=== PATIENT | female | born 1945 | race Caucasian/White ===

== ENCOUNTER 2019-08-28 13:23 | Emergency (ER) | payer MEDICARE, SELFPAY ==
[2019-08-28 13:31] VITALS: BP 117/61; PULSE 61; RESP 18; TEMP 36.4; O2SAT 97; BMI 27.4
--- NOTE | 2019-08-28 13:35 | ED_ITS ---
Entered by Loli Rosas, acting as scribe for Shorty Harris MD HPI - Chest Pain General: Chief Complaint: Syncope Stated Complaint: Bradycardia Time Seen by Provider: 08/28/19 13:32 Source: patient and EMS Mode of arrival: EMS Limitations: no limitations History of Present Illness: HPI narrative: 74 yo Female presents to ED with complaint of symptomatic bradycardia. Pt was at a restaurant when she had a syncopal episode. Pt states that she does not have any chest pains at this time. Pt states that she has a headache. complaint: other (bradycardia) Associated symptoms: Deny abdominal pain, dyspnea, fever(s), nausea or vomiting Review of Systems Const: Denies: fever, chills, body aches or change in appetite Eyes: Denies: blurry vision or eye discomfort ENMT: Denies: throat pain or dental pain Card: Reports: other (bradycardia); Denies: chest pain Resp: Denies: shortness of breath GI: Denies: abdominal pain, nausea, vomiting or diarrhea : Denies: painful urination Musc: Denies: neck pain or back pain Skin/Breast: Denies: rash Neuro: Reports: headache Psych: Denies: depression Krzysztof/Lymph: Denies: easy bruising All/Imm: Denies: hives PFSH ED PFSH: Statuses (acute, chronic, etc) shown below reflect problem list status as previously entered and may not be historically accurate Medical History (Updated 08/28/19 @ 16:28 by Shorty Harris MD) Appendicitis (Acute) Gallstones (Acute) Hepatitis (Acute) HTN (hypertension) (Acute) Syncope (Acute) Surgical History (Updated 08/28/19 @ 14:28 by Loli Rosas) History of appendectomy (Acute) History of cholecystectomy (Acute) History of tonsillectomy (Acute) Social History Smoking and tobacco status: never smoked Physical Exam Const: COMMON NORMALS: no apparent distress, oriented x3 and healthy appearing HENMT: COMMON NORMALS: normocephalic and head/scalp atraumatic HEAD & SCALP: normocephalic and atraumatic Eye: COMMON NORMALS: PERRL and EOMs intact bilaterally PUPIL: Yes PERRL Neck/C-Spine: COMMON NORMALS: full ROM and supple Chest: COMMONS NORMALS: inspection of chest normal and palpation of chest normal Resp: COMMON NORMALS: normal respiratory effort, no retractions, no use of accessory muscles and clear to auscultation bilaterally AUSCULTATION: clear to auscultation bilaterally Cardio: COMMON NORMALS: regular rate, regular rhythm and no murmurs RATE: regular rate RHYTHM: regular rhythm GI: COMMON NORMALS: normal to inspection, nondistended, normoactive bowel sounds, soft to palpation, non-tender and no masses PALPATION: Yes soft Extremity: COMMON NORMALS: normal to inspection and full ROM Neuro: COMMON NORMALS: oriented x3, moves all extremities and no focal motor deficits Psych: COMMON NORMALS: mental status grossly normal, thought process normal a nd cooperative THOUGHT PROCESS: normal thought process Skin: COMMON NORMALS: no rashes or lesions noted and no wounds GENERAL SKIN EXAM: no rashes or lesions noted Course Vital Signs: Vital signs: Vital Signs Temperature 97.5 F L 08/28/19 13:31 Pulse Rate 60 08/28/19 14:41 Respiratory Rate 16 08/28/19 14:13 Blood Pressure 118/66 08/28/19 14:41 Pulse Oximetry 98 08/28/19 14:13 MDM - Chest Pain MDM Narrative: Medical decision making narrative: Patient presents here with syncope most likely vasovagal. Patient had stood up started feeling nauseous and lightheaded and passed out. Unsure why patient received atropine as her bradycardia was likely from her vagal response. Patient has been observed here and her heart rate and blood pressure been normal. Orthostatics were normal she feels much improved and is requesting to be discharged. Patient's EKG is normal and she is stable for discharge. She is to follow-up with primary care doctor in 3 to 5 days and return if worsening. Lab Data: Labs: Lab Results 08/28/19 08/28/19 08/28/19 Range/Units 13:50 13:50 13:50 WBC 5.9 (4.0-10.0) 10^3/ uL RBC 4.59 (4.1-5.3) 10^6/u L Hgb 13.2 (11.5-15.3) g/dL Hct 41.8 (37.0-47.0) % MCV 91.1 (81-99) fL MCH 28.8 (28.0-34.0) pg MCHC 31.6 (30.0-36.0) g/dL RDW 12.5 (12.1-15.1) % Plt Count 216 (130-400) 10^3/c mm MPV 9.6 (7.4-10.4) fL Neut % (Auto) 64.3 % Lymph % (Auto) 27.0 % [place] % (Auto) 4.9 % Eos % (Auto) 3.2 % Baso % (Auto) 0.3 % Neut # (Auto) 3.8 (1.8-7.7) 10^3/u L Lymph # (Auto) 1.6 (0.8-4.8) 10^3/u L [place] # (Auto) 0.3 (0.2-0.9) 10^3/u L Eos # (Auto) 0.2 (0.0-0.8) 10^3/u L Baso # (Auto) 0.0 (0.0-0.1) 10^3/u L Nucleated RBC % (a uto) 0 % Nucleated RBCs # 0.0 /100WBC Sodium 139 (136-145) mmol/L Potassium 4.2 (3.5-5.1) mmol/L Chloride 106 (98-107) mmol/L Carbon Dioxide 22 (22-29) mmol/L Anion Gap 15.2 (5-19) BUN 11 (8-23) mg/dL Creatinine 0.9 (0.5-0.9) mg/dL Glucose 101 (74-106) mg/dL Calcium 9.1 (8.5-10.5) mg/dL Total Bilirubin 0.3 (0.15-1.2) mg/dL AST 20 (0-32) U/L ALT 13 (0-33) U/L Alkaline Phosphata se 75 (35-105) IU/L Troponin T Baselin e 8 (0-10) ng/mL Troponin T 120 Min [place] (0-10) ng/mL Delta Troponin T (0-10) ABS# Total Protein 7.0 (6.6-8.7) g/dL Albumin 4.0 (3.5-5.2) g/dL Globulin 3.0 (1.3-4.6) g/dL 08/28/19 Range/Units 15:46 WBC (4.0-10.0) 10^3/ uL RBC (4.1-5.3) 10^6/u L Hgb (11.5-15.3) g/dL Hct (37.0-47.0) % MCV (81-99) fL MCH (28.0-34.0) pg MCHC (30.0-36.0) g/dL RDW (12.1-15.1) % Plt Count (130-400) 10^3/c mm MPV (7.4-10.4) fL Neut % (Auto) % Lymph % (Auto) % [place] % (Auto) % Eos % (Auto) % Baso % (Auto) % Neut # (Auto) (1.8-7.7) 10^3/u L Lymph # (Auto) (0.8-4.8) 10^3/u L [place] # (Auto) (0.2-0.9) 10^3/u L Eos # (Auto) (0.0-0.8) 10^3/u L Baso # (Auto) (0.0-0.1) 10^3/u L Nucleated RBC % (a uto) % Nucleated RBCs # /100WBC Sodium (136-145) mmol/L Potassium (3.5-5.1) mmol/L Chloride (98-107) mmol/L Carbon Dioxide (22-29) mmol/L Anion Gap (5-19) BUN (8-23) mg/dL Creatinine (0.5-0.9) mg/dL Glucose (74-106) mg/dL Calcium (8.5-10.5) mg/dL Total Bilirubin (0.15-1.2) mg/dL AST (0-32) U/L ALT (0-33) U/L Alkaline Phosphata se (35-105) IU/L Troponin T Baselin e (0-10) ng/mL Troponin T 120 Min [place] 8.02 (0-10) ng/mL Delta Troponin T 0.02 (0-10) ABS# Total Protein (6.6-8.7) g/dL Albumin (3.5-5.2) g/dL Globulin (1.3-4.6) g/dL Imaging Data^: CXR: Radiologist's impression: [address] [address] XRay Report Signed Patient: Babita Barrientos #: [id number] : 7Acct#:[id number] Age/Sex: 74 / FADM Date: 08/28/19 Loc: ERRoom/Bed: Attending Dr: Ordering Provider/Ordering MD: Shorty Harris MD Date of Service: 08/28/19 Procedure(s): XR chest 1V portable [id number] Accession Number(s): [id number] Report Number: [id number] WS: [id number] PORTABLE CHEST HISTORY: Chest pain and syncope. COMPARISON: 11/13/2018 Mild elevation of the RIGHT hemidiaphragm. Lungs are clear. No pneumonia. No pneumothorax. No pleural effusion or pneumothorax. Cardiac size: Normal. Mediastinum/Aorta: Mild atherosclerosis aorta. No osseous abnormality seen. XR/XR chest 1V portable [id number] IMPRESSION: Stable chest with no acute cardiopulmonary disease. Dictated By:Annita Meehan DO Signed By:Annita Meehan DOSigned Date/Time:08/28/191403 DD/ 1404 EKG Data^: EKG 1: Attestation: I personally reviewed and interpreted this EKG as follows: EKG interpretation date: 08/28/19 EKG interpretation time: 13:45 Interpretation: sinus jean marie hr [address] or t wave abnormalities qrs 89 qtc 433 Discharge Plan Discharge Patient Disposition: Home, Self-Care Clinical Impression: Vasovagal syncope Condition: Stable Prescriptions: No Action multivitamin Tablet 1 tab PO DAILY RF: 0 lamotrigine 150 mg tablet 150 mg PO DAILY RF: 0 metoprolol succinate 100 mg tablet extended release 24 hr 100 mg PO DAILY RF: 0 amlodipine 5 mg tablet 5 mg PO DAILY RF: 0 pantoprazole 40 mg tablet,delayed release (DR/EC) 40 mg PO DAILY RF: 0 aspirin 81 mg Tablet,Chewable 81 mg PO DAILY RF: 0 rosuvastatin 10 mg tablet 10 mg PO DAILY RF: 0 Discharge Orders: Discharge Order (Routine); Ordered 08/28/19 Ordered By: Shorty Harris Referrals: [facility] [Other] Discharge Diet: Advance as tolerated Discharge Activity: Resume usual activity Patient Instructions: Syncope (ED) Discharge Date/Time: 08/28/19 16:50 Coding Level of Care Code ED Style Advisor for Chg Fwd Exam Problem Focused The documentation recorded by the Alison singh Carmen, accurately reflects the service I personally performed and the decisions made by , Shorty Harris MD Aug 28, 2019 13:23
--- NOTE | 2019-08-28 13:37 | XR_ITS ---
WS: [id number] PORTABLE CHEST HISTORY: Chest pain and syncope. COMPARISON: 11/13/2018 Mild elevation of the RIGHT hemidiaphragm. Lungs are clear. No pneumonia. No pneumothorax. No pleural effusion or pneumothorax. Cardiac size: Normal. Mediastinum/Aorta: Mild atherosclerosis aorta. No osseous abnormality seen. XR/XR chest 1V portable [id number] IMPRESSION: Stable chest with no acute cardiopulmonary disease.
--- NOTE | 2019-08-28 13:37 | ECG_ITS ---
Measurements Intervals [place] Rate: 57 P: 6 CT: 100 QRS: -22 QRSD: 89 T: 9 QT: 438 QTc: 429 SINUS BRADYCARDIA WITH SHORT CT INTERVAL BORDERLINE LEFT AXIS DEVIATION [QRS AXIS < -20] LOW QRS VOLTAGE IN PRECORDIAL LEADS [QRS DEFLECTION < 1.0 mV IN CHEST LEADS] MODERATE VOLTAGE CRITERIA FOR LVH, CONSIDER NORMAL VARIANT [MEETS CRITERIA IN ONE OF: R(aVL), S(V1), R(V5), R(V5/V6)+S(V1)] MINIMAL ST DEPRESSION [0.025+ mV ST DEPRESSION] Compared to ECG 11/21/2017 01:35:[address] interval now present Low QRS voltage now present Sinus rhythm no longer present Myocardial infarct finding no longer present ST (T wave) deviation still present Electronically Signed On 08-28-2019 16:19:38 EXTRACT WRINGER by Brandon Alamo M.D. [email or web address]
[2019-08-28 14:09] LABS: Basophils % 0.3 %; Eosinophils # 0.2 10^3/uL (0.0-0.8); Eosinophils % 3.2 %; Hematocrit 41.8 % (37.0-47.0); Hemoglobin 13.2 g/dL (11.5-15.3); Lymphocytes # 1.6 10^3/uL (0.8-4.8); Mean Corpuscular HGB Conc 31.6 g/dL (30.0-36.0); Mean Corpuscular Hemoglobin 28.8 pg (28.0-34.0); Mean Corpuscular Volume 91.1 fL (81-99); Mean Platelet Volume 9.6 fL (7.4-10.4); Monocytes # 0.3 10^3/uL (0.2-0.9); Monocytes % 4.9 %; Neutrophils # 3.8 10^3/uL (1.8-7.7); Neutrophils % 64.3 %; Nucleated Red Blood Cells % 0 %; Platelet Count 216 10^3/cmm (130-400); Red Blood Count 4.59 10^6/uL (4.1-5.3); Red Cell Distribution Width 12.5 % (12.1-15.1); White Blood Count 5.9 10^3/uL (4.0-10.0)
[2019-08-28 14:13] VITALS: PULSE 59; RESP 16; O2SAT 98
[2019-08-28 14:19] LABS: Alanine Aminotransferase 13 U/L (0-33); Alkaline Phosphatase 75 IU/L (35-105); Anion Gap 15.2 (5-19); Aspartate Amino Transferase 20 U/L (0-32); Blood Urea Nitrogen 11 mg/dL (8-23); Calcium 9.1 mg/dL (8.5-10.5); Carbon Dioxide 22 mmol/L (22-29); Chloride 106 mmol/L (98-107); Creatinine Clr Calc Pharmacy 59.2489; Glucose 101 mg/dL (74-106); Potassium 4.2 mmol/L (3.5-5.1); Sodium 139 mmol/L (136-145); Total Bilirubin 0.3 mg/dL (0.15-1.2)
[2019-08-28 14:20] LABS: Troponin(5th) Baseline 8 ng/mL (0-10)
[2019-08-28 14:41] VITALS: BP 113/69; BP 118/66; BP 128/73; PULSE 60; PULSE 70; PULSE 73
[2019-08-28] MEDS: sodium chloride 0.9% 1,000 ML 999 ML IV (15:17)
[2019-08-28 16:15] LABS: Troponin 5 2HR 8.02 ng/mL (0-10); Troponin 5 2HR Delta 0.02 ABS# (0-10)
[2019-08-28 16:49] VITALS: BP 128/69; PULSE 64; RESP 16; O2SAT 97
--- NOTE | 2019-08-28 19:37 | ECG_ITS ---
Measurements Intervals [place] Rate: 60 P: 46 MA: 146 QRS: -18 QRSD: 106 T: 0 QT: 459 QTc: 459 SINUS RHYTHM LOW QRS VOLTAGE IN PRECORDIAL LEADS [QRS DEFLECTION < 1.0 mV IN CHEST LEADS] MODERATE VOLTAGE CRITERIA FOR LVH, CONSIDER NORMAL VARIANT [MEETS CRITERIA IN ONE OF: R(aVL), S(V1), R(V5), R(V5/V6)+S(V1)] POSSIBLE ANTERIOR MYOCARDIAL INFARCTION , PROBABLY OLD [30 ms Q WAVE IN V3/V4, OR R < 0.2 mV IN V4] Compared to ECG 11/21/2017 01:35:05 Low QRS voltage now present ST (T wave) deviation no longer present Myocardial infarct finding still present Electronically Signed On 08-28-2019 16:23:26 SLIDE FASTENERS INSPECTOR by Brandon Alamo M.D. [id number]
== END 2019-08-28 16:50 | disposition home or self-care (01) ==
PROVIDERS: Emergency Provider Emergency Medicine
DX: R55 Syncope and collapse (principal); Z79.82 Long term (current) use of aspirin; I10 Essential (primary) hypertension
CPT/HCPCS: 36415; 71045; 80053; 84484; 85025; 93005; 99283; 99284; J7030

== ENCOUNTER 2019-09-12 10:14 | Outpatient (CLI) | payer MEDICARE, SELFPAY ==
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
== END 2019-09-12 10:15 | disposition home or self-care (01) ==
LOC: RADWPI 10:18
PROVIDERS: PCP Nurse Practitioner Family; Visit Provider Nurse Practitioner Family
DX: Z78.0 Asymptomatic menopausal state (principal)
CPT/HCPCS: 77080

== ENCOUNTER 2019-10-11 08:16 | Outpatient (CLI) | payer MEDICARE, SELFPAY ==
--- NOTE | 2019-10-11 08:22 | MM_ITS ---
WS: [id number] BILATERAL SCREENING DIGITAL MAMMOGRAM WITH CAD HISTORY: SCREENING COMPARISON: 09/12/2018 at 07/14/2017 Bilateral CC and MLO views submitted. Computer aided detection analyzed. Breast composition: There are scattered areas of fibroglandular density. No suspicious masses, microc alcifications or architectural distortion. No change in the parenchymal pattern. MM/[place] [id number] IMPRESSION: BI-RADS: 2-Benign FOLLOW UP: 1 Year Follow-up
== END 2019-10-11 08:17 | disposition home or self-care (01) ==
LOC: RADSHAW 08:16
PROVIDERS: PCP Nurse Practitioner Family; Visit Provider Nurse Practitioner Family
DX: Z12.31 Encounter for screening mammogram for malignant neoplasm of breast (principal)
CPT/HCPCS: 77067

== ENCOUNTER 2020-12-25 11:53 | Outpatient (CLI) | payer MEDICARE, SELFPAY ==
--- NOTE | 2020-12-25 11:59 | MM_ITS ---
WS: [id number] BILATERAL SCREENING DIGITAL MAMMOGRAM WITH CAD HISTORY: SCREENING COMPARISON: 10/11/2019, 07/14/2017 Bilateral CC and MLO views submitted. Computer aided detection analyzed. Breast composition: There are scattered areas of fibroglandular density. No suspicious masses, microc alcifications or architectural distortion. Benign calcification LEFT breast. MM/[place] [id number] IMPRESSION: BI-RADS: 2-Benign FOLLOW UP: 1 Year Follow-up
== END 2020-12-25 11:54 | disposition home or self-care (01) ==
LOC: RADSHAW 11:58
PROVIDERS: PCP Nurse Practitioner Family; Visit Provider Nurse Practitioner Family
DX: Z12.31 Encounter for screening mammogram for malignant neoplasm of breast (principal)
CPT/HCPCS: 77067

== ENCOUNTER 2021-04-07 09:57 | Outpatient (CLI) | payer MEDICARE, SELFPAY ==
--- NOTE | 2021-04-07 | XR_ITS ---
WS: [id number] RIGHT RIBS, MULTIPLE VIEWS WITH PA CHEST HISTORY: RIB PAIN ON RIGHT SIDE COMPARISON: 08/28/2019 Lungs and mediastinum: Mild pulmonary hyperexpansion. Calcified RIGHT hilar lymph nodes. Slight eleva tion RIGHT hemidiaphragm is stable. Ribs: Nondisplaced anterolateral seventh rib fracture. Fourth, fifth and sixth ribs are also fracture d laterally. No underlying pneumothorax. XR/XR ribs RT mn 3V w CXR1V [id number] IMPRESSION: Nondisplaced RIGHT lateral fourth through seventh rib fractures.
--- NOTE | 2021-04-07 | XR_ITS ---
WS: [id number] RIGHT FOOT: 3 VIEW(S) TECHNIQUE: AP, oblique and lateral. HISTORY: FALL, RIGHT FOOT PAIN COMPARISON: None available. Transverse fracture at the base of the fifth metatarsal without displacement. Mild degenerative changes at the first metatarsophalangeal joint. Postoperative changes at the tibiotalar joint. XR/XR foot RT min 3V* [id number] IMPRESSION: Nondisplaced transverse fracture proximal fifth metatarsal.
== END 2021-04-07 09:58 | disposition home or self-care (01) ==
LOC: RADOUTREAD 04-08 10:04
PROVIDERS: PCP Nurse Practitioner Family; Visit Provider Nurse Practitioner Family
DX: S92.354A Nondisplaced fracture of fifth metatarsal bone, right foot, initial encounter for closed fracture (principal); S22.41XA Multiple fractures of ribs, right side, initial encounter for closed fracture; M79.671 Pain in right foot; X58.XXXA Exposure to other specified factors, initial encounter

== ENCOUNTER 2021-12-29 09:17 | Outpatient (CLI) | payer MEDICARE, SELFPAY ==
--- NOTE | 2021-12-29 09:25 | MM_ITS ---
WS: [id number] Bilateral screening 3D tomosynthesis digital mammogram, 12/29/2021 Clinical Data: SCREENING Comparison: 12/25/2020, 10/11/2019, 09/12/2018, 07/14/2017, 06/07/2016, 05/30/2015, 05/15/2014, 3, 01/28/2012, 01/26/2011, 01/15/2010, 01/09/2029, 01/02/2028, 12/13/2026. Findings: The breast parenchymal pattern shows fibroglandular tissue. No spiculated masses or clustered calcif ications are seen. There are no secondary signs of carcinoma. There is a mole marker on the left [address] MM/[place] [id number] Impression: 1. Negative bilateral mammogram unchanged. 2. Recommend annual screening mammograms. BIRADS: 1-Negative FOLLOW UP: 1 Year Follow-up The CAD checkering machine operator was used.
== END 2021-12-29 09:18 | disposition home or self-care (01) ==
LOC: RAD 09:19
PROVIDERS: PCP Nurse Practitioner Family; Visit Provider Nurse Practitioner Family
DX: Z12.31 Encounter for screening mammogram for malignant neoplasm of breast (principal)
CPT/HCPCS: 77063; 77067

== ENCOUNTER 2022-05-03 12:46 | Outpatient (CLI) | payer MEDICARE, SELFPAY ==
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
== END 2022-05-03 12:47 | disposition home or self-care (01) ==
LOC: RAD 12:47
PROVIDERS: PCP Nurse Practitioner Family; Visit Provider Nurse Practitioner Family
DX: Z78.0 Asymptomatic menopausal state (principal)
CPT/HCPCS: 77080

== ENCOUNTER 2022-07-02 15:34 | Emergency (ER) | payer OTHER, MEDICARE, SELFPAY ==
[2022-07-02 15:39] VITALS: BP 150/75; PULSE 68; RESP 14; TEMP 36.4; O2SAT 97; BMI 28.3
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
[2022-07-02 16:50] VITALS: BP 134/80; PULSE 56; RESP 16; O2SAT 95
== END 2022-07-02 16:51 | disposition home or self-care (01) ==
PROVIDERS: Emergency Provider Physician Assistant; PCP Nurse Practitioner Family
DX: Z04.1 Encounter for examination and observation following transport accident (principal); Z79.82 Long term (current) use of aspirin; I10 Essential (primary) hypertension; V89.2XXA Person injured in unspecified motor-vehicle accident, traffic, initial encounter
CPT/HCPCS: 71045; 99283

== ENCOUNTER 2023-01-06 08:10 | Outpatient (CLI) | payer MEDICARE, SELFPAY ==
--- NOTE | 2023-01-06 08:24 | MM_ITS ---
WS: [id number] BILATERAL SCREENING DIGITAL TOMOSYNTHESIS MAMMOGRAM WITH CAD HISTORY: SCREENING COMPARISON: 12/29/2021, 12/25/2020 and 06/07/2016 Bilateral CC and MLO views with tomosynthesis and synthetic mammography submitted. Computer aided det ection analyzed. Breast composition: There are scattered areas of fibroglandular density. No suspicious masses, microc alcifications or architectural distortion. Stable scattered asymmetries RIGHT breast. Benign calcific ations. MM/[place] [id number] IMPRESSION: BI-RADS: 2-Benign FOLLOW UP: 1 Year Follow-up
== END 2023-01-06 08:11 | disposition home or self-care (01) ==
PROVIDERS: PCP Nurse Practitioner Family; Visit Provider Nurse Practitioner Family
DX: Z12.31 Encounter for screening mammogram for malignant neoplasm of breast (principal)
CPT/HCPCS: 77063; 77067

== ENCOUNTER 2024-01-26 11:49 | Outpatient (CLI) | payer MEDICARE, SELFPAY ==
--- NOTE | 2024-01-26 11:52 | MM_ITS ---
WS: [id number] VIEWS: MLO and CC views both breasts. 3D digital tomosynthesis is also included in this exam. Comparison made with prior exam of 01/02/2008, 01/09/2009, 01/15/2010, 01/26/2011, 01/28/2012, 3, 05/15/2014, 05/30/2015, 06/07/2016, 07/17/2017, 09/12/2018, 10/11/2019, 12/25/2020, 12/29/2021, 3.. Findings: There was no sign of mass, architectural distortion or suspicious calcification in either breast. The re are scattered areas of fibroglandular density MM/[place] [id number] Impression: BI-RADS: 1-Negative FOLLOW-UP: 1 Year Follow-up This mammogram was also analyzed by the Computer Aided Detection System R2 Imag e Meter Mechanic.
== END 2024-01-26 11:50 | disposition home or self-care (01) ==
LOC: RAD 11:50
PROVIDERS: PCP Nurse Practitioner Family; Visit Provider Nurse Practitioner Family
DX: Z12.31 Encounter for screening mammogram for malignant neoplasm of breast (principal); R92.323 Mammographic fibroglandular density, bilateral breasts
CPT/HCPCS: 77063; 77067

== ENCOUNTER 2024-10-15 12:48 | Outpatient (CLI) | payer OTHER, SELFPAY ==
--- NOTE | 2024-10-15 12:56 | XR_ITS ---
WS: [id number] SCREENING DEXA SCAN [employer] CLINICAL INFORMATION: POSTMENOPAUSAL COMPARISON: 2021 FINDINGS: The L1-L4 bone mineral density measures 1.020 g/cm2. This corresponds to a T score score of -1.3 and Z score of -0.1. Left femoral neck bone mineral density measures 0.874 g/cm2. This corresponds to a T score of -1.1 and Z score of 0.4. Right femoral neck bone mineral density measures 0.873 g/cm2. This corresponds to a T score -1.1of and Z score of 0.4. Mean femoral neck bone mineral density measures 0.873 g/cm2. This corresponds to a T score of -1.1 and Z score of 0.4. XR/XR DEXA axial skeleton* [id number] IMPRESSION: Osteopenia lumbar spine. Osteopenia femoral necks. Patient's FRAX calculated 10 year probability for major osteoporotic fracture i s 20.4% and osteoporotic hip fracture is 5.0%. Bone marrow density lumbar spine decreased -4.0% Bone mineral density femoral necks decreased -1.7%
== END 2024-10-15 12:49 | disposition home or self-care (01) ==
PROVIDERS: PCP Nurse Practitioner Family; Visit Provider Nurse Practitioner Family
DX: Z78.0 Asymptomatic menopausal state (principal); M85.89 Other specified disorders of bone density and structure, multiple sites
CPT/HCPCS: 77080

== ENCOUNTER 2025-01-28 13:47 | Outpatient (CLI) | payer MEDICARE, SELFPAY ==
--- NOTE | 2025-01-28 13:55 | MM_ITS ---
WS: [id number] BILATERAL 3D TOMOSYNTHESIS DIGITAL SCREENING MAMMOGRAPHY WITH CAD CLINICAL INFORMATION: SCREENING HISTORY: Screening mammogram. No current complaints. COMPARISON: 2023 TECHNIQUE: Bilateral CC and MLO views. FINDINGS: Scattered fibroglandular densities bilaterally. No suspicious focal mass, asymmetry, calcifications, or architectural distortion. No evidence of malignancy. Incidental punctate calcifications. MM/MM [facility] tomosynthesis [id number] IMPRESSION: DENSITY: There are scattered areas of fibroglandular density. BI-RADS: 2 - Benign. FOLLOW UP: 1 Year Follow-up Recommend return to annual screening mammography.
== END 2025-01-28 13:48 | disposition home or self-care (01) ==
LOC: RAD 13:49
PROVIDERS: PCP Nurse Practitioner Family; Visit Provider Nurse Practitioner Family
DX: Z12.31 Encounter for screening mammogram for malignant neoplasm of breast (principal); R92.323 Mammographic fibroglandular density, bilateral breasts; R92.1 Mammographic calcification found on diagnostic imaging of breast
CPT/HCPCS: 77063; 77067

== ENCOUNTER 2025-02-19 12:42 | Outpatient (CLI) | payer MEDICARE, SELFPAY ==
[2025-02-19 13:04] VITALS: PULSE 68; RESP 18; O2SAT 97
== END 2025-02-19 12:43 | disposition home or self-care (01) ==
PROVIDERS: PCP Nurse Practitioner Family; Visit Provider Specialist
DX: R05.3 Chronic cough (principal); J37.0 Chronic laryngitis
CPT/HCPCS: 94060; J7613

== ENCOUNTER → 2025-05-16 11:10 | Outpatient (BNVA) | payer MEDICARE, SELFPAY | PROVIDERS: PCP Nurse Practitioner Family; Visit Provider Internal Medicine | DX: J98.6 Disorders of diaphragm (principal); R91.8 Other nonspecific abnormal finding of lung field; J44.9 Chronic obstructive pulmonary disease, unspecified | CPT/HCPCS: 36415; 85025; 99204; Q3014 ==

== ENCOUNTER 2025-06-26 09:06 | Outpatient (CLI) | payer MEDICARE, SELFPAY ==
[2025-06-26 09:30] VITALS: PULSE 69; RESP 18; O2SAT 98
== END 2025-06-26 09:07 | disposition home or self-care (01) ==
LOC: RT 09:08
PROVIDERS: Family Provider Specialist; PCP Nurse Practitioner Family; Visit Provider Internal Medicine
DX: J44.9 Chronic obstructive pulmonary disease, unspecified (principal); R94.2 Abnormal results of pulmonary function studies
CPT/HCPCS: 94060; 94726; 94729; J7613

== ENCOUNTER → 2025-07-11 10:51 | Outpatient (BNVA) | payer MEDICARE, SELFPAY | PROVIDERS: Family Provider Specialist; PCP Nurse Practitioner Family; Visit Provider Internal Medicine | DX: J98.6 Disorders of diaphragm (principal); R05.3 Chronic cough; R93.89 Abnormal findings on diagnostic imaging of other specified body structures; R94.2 Abnormal results of pulmonary function studies; R06.09 Other forms of dyspnea; Z99.89 Dependence on other enabling machines and devices; Z91.199 Patient's noncompliance with other medical treatment and regimen due to unspecified reason | CPT/HCPCS: 99214; Q3014 ==